=== PATIENT | male | born 1940 | race Two or more races ===

== ENCOUNTER 2020-11-11 14:08 | Emergency (ER) | payer OTHER ==
[~2020-11-11] VITALS: Ht 165.1 cm; Wt 58.5 kg
[2020-11-11] MEDS ORDERED: ALTACE5 MG (14:30)
[2020-11-11] MEDS ORDERED: FORTAMET500 MG (14:30)
[2020-11-11] MEDS ORDERED: SYNTHROID50 MCG (14:31)
[2020-11-11] MEDS ORDERED: VASOFLEX D1 CA1 EACH (14:31)
[2020-11-11] MEDS ORDERED: GLIMEPIRIDE4 MG (14:32)
== END 2020-11-11 18:57 | disposition home or self-care (01) ==
LOC: ER 14:08
DX: M94.0 Chondrocostal junction syndrome [Tietze] (principal); R53.1 Weakness; R07.89 Other chest pain; R10.2 Pelvic and perineal pain; R10.31 Right lower quadrant pain; R10.32 Left lower quadrant pain

== ENCOUNTER 2021-04-22 11:38 | Inpatient (IN) | payer OTHER ==
[~2021-04-22] VITALS: Ht 167.6 cm; Wt 58.1 kg
[~2021-04-22 11:38] MED LIST: ALTACE5 MG; FORTAMET500 MG; GLIMEPIRIDE4 MG; SYNTHROID50 MCG; VASOFLEX D1 CA1 EACH
[2021-04-27] MEDS ORDERED: CEFDINIR300 MG PO (09:36)
== END 2021-04-27 11:44 | disposition home or self-care (01) | DRG 690 ==
LOC: ER 11:38 → MEDJ 19:50 → SEC-K 19:50 → MEDJ 04-23 00:07
PROVIDERS: ADMIT Internal Medicine; ATTEND Internal Medicine
PROC: BW28ZZZ Computerized Tomography (CT Scan) of Head (ICD-10-PCS; 2021-04-22)
PROC: B24BZZZ Ultrasonography of Heart with Aorta (ICD-10-PCS; principal; 2021-04-23)
DX: N39.0 Urinary tract infection, site not specified (principal); B96.29 Other Escherichia coli [E. coli] as the cause of diseases classified elsewhere; I50.9 Heart failure, unspecified; E11.9 Type 2 diabetes mellitus without complications; Z79.4 Long term (current) use of insulin; Z74.01 Bed confinement status; F03.90 Unspecified dementia, unspecified severity, without behavioral disturbance, psychotic disturbance, mood disturbance, and anxiety; Z20.822 Contact with and (suspected) exposure to COVID-19; E03.8 Other specified hypothyroidism; R53.1 Weakness; I11.0 Hypertensive heart disease with heart failure